=== PATIENT | male | born 1945 | race Caucasian/White ===

== ENCOUNTER 2017-08-31 19:28 | Emergency (ER) | payer OTHER ==
[2017-08-31 19:37] VITALS: BP 109/71; PULSE 89; RESP 16; TEMP 97.7; O2SAT 92
--- NOTE | 2017-08-31 20:11 | EDPHY ---
H & P Stated Complaint: gouged l index finger with chisel while woodworking Time Seen by Provider: 08/31/17 19:37 HPI/ROS: CHIEF COMPLAINT: Finger laceration HISTORY OF PRESENT ILLNESS: Patient is a 72-year-old man who comes to the emergency department complaining of a laceration to his left index finger. He was using a chisel by hand to shave would when he slipped and cut his left index finger at the DIP joint palmar aspect. He has normal range of motion and sensation. This happened about 3 hr prior to arrival. REVIEW OF SYSTEMS: Constitutional: denies: chills, fever, recent illness, recent injury EENTM: denies: blurred vision, double vision, nose congestion Respiratory: denies: cough, shortness of breath Cardiac: denies: chest pain, irregular heart rate, lightheadedness, palpitations Gastrointestinal/Abdominal: denies: abdominal pain, diarrhea, nausea, vomiting, blood streaked stools Genitourinary: denies: dysuria, frequency, hematuria, pain Musculoskeletal: denies: joint pain, muscle pain Skin: See HPI Neurological: denies: headache, numbness, paresthesia, tingling, dizziness, weakness Hematologic/Lymphatic: denies: blood clots, easy bleeding, easy bruising Immunologic/allergic: denies: HIV/AIDS, transplant EXAM: GENERAL: Well-appearing, well-nourished and in no acute distress. HEAD: Atraumatic, normocephalic. EYES: Pupils equal round and reactive to light, extraocular movements intact, sclera anicteric, conjunctiva are normal. ENT: TMs normal, nares patent, oropharynx clear without exudates. Moist mucous membranes. NECK: Normal range of motion, supple without lymphadenopathy or JVD. LUNGS: Breath sounds clear to auscultation bilaterally and equal. No wheezes rales or rhonchi. HEART: Regular rate and rhythm without murmurs, rubs or gallops. ABDOMEN: Soft, nontender, normoactive bowel sounds. No guarding, no rebound. No masses appreciated. BACK: No CVA tenderness, no spinal tenderness, step-offs or deformities EXTREMITIES: Normal range of motion, no pitting or edema. No clubbing or cyanosis. NEUROLOGICAL: Cranial nerves II through XII grossly intact. Normal speech, normal gait. 5/5 strength, normal movement in all extremities, normal sensation PSYCH: Normal mood, normal affect. SKIN: 1.5 cm laceration to palmar aspect of left index finger. Normal range of motion and sensation. Source: Patient Exam Limitations: No limitations - Personal History Current Tetanus Diphtheria and Acellular Pertussis (TDAP): Yes Tetanus Vaccine Date: 2-3 YRS AGO - Medical/Surgical History Hx Asthma: No Hx Chronic Respiratory Disease: No Hx Diabetes: No Hx Cardiac Disease: No Hx Renal Disease: No Hx Cirrhosis: No Hx Alcoholism: No Hx HIV/AIDS: No Hx Splenectomy or Spleen Trauma: No - Family History Significant Family History: No pertinent family hx - Social History Smoking Status: Former smoker Alcohol Use: Sober Drug Use: None Constitutional: Initial Vital Signs Temperature (C) 36.5 C 08/31/17 19:34 Heart Rate 89 08/31/17 19:34 Respiratory Rate 16 08/31/17 19:34 Blood Pressure 109/71 08/31/17 19:34 O2 Sat (%) 92 08/31/17 19:34 O2 Delivery Mode Room Air Allergies/Adverse Reactions: No Known Allergies Allergy (Verified 01/27/12 15:09) Home Medications: Medication Instructions Recorded Simvastatin [Zocor 20 mg (RX)] 20 mg PO DAILY18 01/15/12 Medical Decision Making - Diagnostics Imaging Results: Imaging Impressions Finger X-Ray 08/31/17 19:38 Impression: Soft tissue injury with no convincing fracture or radiopaque foreign body. Imaging: Discussed imaging studies w/ scallop cutter Radiologist Procedures: Procedure: Laceration repair. Verbal consent was obtained from the patient. The 1.5 senna left index finger laceration was anesthetized with 0.5% bupivacaine locally infiltrated. The wound was irrigated copiously according to protocol, draped and explored to its base. It was approximately 1/2 cm deep. There were no deep structures involved. No tendon, nerve, or vascular injury was identified when explored through full range of motion. No foreign body was identified. The wound was repaired with 5.0 Prolene, 3 sutures, interrupted. The wound repair was simple without wound margin revisement or multiple flap alignment. The procedure was performed by myself. A dressing was then placed with sterile gauze and bacitracin. ED Course/Re-evaluation: Patient tolerated suture repair well. No foreign body visible. X-rays reassuring. We discussed suture care and follow-up. Differential Diagnosis: Partial list of the Differential diagnosis considered include but were not limited to; laceration, tendon injury, vascular injury and although unlikely based on the history and physical exam, I also considered fracture, foreign body. I discussed these differential diagnoses and the plan with the patient as well as the usual and expected course. The patient understands that the diagnosis is provisional and that in medicine we are not always correct and that further workup is often warranted. Usual and customary warnings were given. All of the patient's questions were answered. The patient was instructed to return to the emergency department should the symptoms at all worsen or return, otherwise to followup with the physician as we discussed. Departure - Departure Disposition: Home, Routine, Self-Care Clinical Impression: Laceration Laceration of left index finger Qualifiers: Encounter type: initial encounter Damage to nail status: without damage Foreign body presence: without foreign body Qualified Code(s): S61.211A - Laceration without foreign body of left index finger without damage to nail, initial encounter Condition: Fair Instructions: Care For Your Stitches (ED), Laceration (ED) Additional Instructions: Have your stitches removed in 10 days Referrals: Jesenia Quijano MD [Primary Care Provider] - As per Instructions
== END 2017-08-31 20:20 | disposition home or self-care (01) ==
LOC: CED 19:28
PROC: 0HQGXZZ Repair Left Hand Skin, External Approach (ICD-10-PCS; principal; 2017-08-31)
DX: S61.211A Laceration without foreign body of left index finger without damage to nail, initial encounter (principal); Z87.891 Personal history of nicotine dependence; W45.8XXA Other foreign body or object entering through skin, initial encounter
CPT/HCPCS: 73140-PO

== ENCOUNTER 2018-09-27 10:56 | Emergency (ER) | payer OTHER, BC ==
[2018-09-27] MEDS ORDERED: ceFAZolin 1 GM in NS 100 ML IV ONE (11:48)
--- NOTE | 2018-09-27 12:08 | EDPHY ---
H & P Stated Complaint: left digits 2-4th lacerations at tip from table saw today 15 mins [employer] Time Seen by Provider: 09/27/18 10:58 HPI/ROS: 73-year-old male presents after injuring his left hand on his table saw he states he briefly looked away and suddenly felt dizzy thing to his fingers and noticed a large amount of blood. He is not on a blood thinner. Review of systems General no fever no chills no weakness HEENT no eye pain no eye discharge. No eye redness, no sore throat Respiratory no cough, no shortness of breath Cardiac no chest pain, no peripheral edema GI no abdominal pain, no diarrhea, no constipation, no nausea, no vomiting no flank pain, no hematuria, no dysuria Musculoskeletal no myalgias, no joint pain Heme no easy bruising, no easy bleeding Endo no polyuria, no polydipsia Skin no rashes, no pruritus Neuro no syncope, no dizziness, no headaches Psych is no suicidal ideation, no homicidal ideation Source: Patient, Family Exam Limitations: No limitations - Personal History Current Tetanus Diphtheria and Acellular Pertussis (TDAP): Yes Tetanus Vaccine Date: 2-3 YRS AGO - Medical/Surgical History Hx Asthma: No Hx Chronic Respiratory Disease: No Hx Diabetes: No Hx Cardiac Disease: No Hx Renal Disease: No Hx Cirrhosis: No Hx Alcoholism: No Hx HIV/AIDS: No Hx Splenectomy or Spleen Trauma: No Other PMH: high cholestrol, enlarged prostate, hernia repair, sinus surg x3 - Family History Significant Family History: No pertinent family hx - Social History Smoking Status: Former smoker Alcohol Use: Occasionally Drug Use: None - Physical Exam Exam: 73-year-old male Alert and oriented in no acute distress nontoxic appearance, afebrile Atraumatic normocephalic Neck no JVD Lungs clear to auscultation, no respiratory distress Heart regular rate and rhythm Extremities no cyanosis clubbing edema Except left hand Full range of motion at wrist, metacarpals, PIP and DIP All digits with good capillary refill Distal finger tip laceration to 4th digit, simple, 1 cm Ragged/stellate laceration to 3rd distal fingertip 1.5 cm, involving distal aspect of nail bed Laceration to distal finger tip of 2nd finger 1.5 cm with minimal involvement of distal aspect of nail bed Constitutional: Initial Vital Signs Temperature (C) 36.2 C 09/27/18 11:03 Heart Rate 71 09/27/18 11:03 Respiratory Rate 18 09/27/18 11:03 Blood Pressure 145/86 H 09/27/18 11:03 O2 Sat (%) 94 09/27/18 11:03 O2 Delivery Mode Room Air Allergies/Adverse Reactions: No Known Allergies Allergy (Verified 09/27/18 11:02) Home Medications: Medication Instructions Recorded Simvastatin [Zocor 20 mg (RX)] 20 mg PO DAILY18 01/15/12 Cephalexin 500 mg PO TID #21 tablet 09/27/18 Prostate Meds 09/27/18 Medical Decision Making - Diagnostics Imaging Results: Imaging Impressions Hand X-Ray 09/27/18 11:11 Impression: Tiny cortical chip fractures off the bony jaya of the 2nd and 3rd distal phalanges. Procedures: Procedure note-laceration Metacarpal block to the 2nd 3rd and 4th fingers with a combination of bupivacaine 0.5% without epinephrine and lidocaine 2% without epinephrine, 8 cc The wound was irrigated with copious amounts of saline. Eighteen simple interrupted sutures placed to approximate distal fingertips on digits 2,3,4 5-0 Ethilon used for repair Patient tolerated procedure well. ED Course/Re-evaluation: patient seen and evaluated for table saw injury to left hand X-ray with of minute cortical fractures to 2nd and 3rd distal fingertips Impression/plan Open fracture to distal fingertips 2nd and 3rd Patient given Ancef 1 g IV piggyback for open fracture for prophylactic antibiotic coverage Sutured repair Patient advised to return for suture removal in 10-12 days Patient advised to follow up with Hand surgery as needed Home with prescription for cephalexin Differential Diagnosis: Differential diagnosis considered but not limited to: Finger tip laceration, open fracture, closed fracture, open fracture with laceration - Data Points Medications Given: Discontinued Medications Cefazolin Sodium 1 gm/ Sodium (Chloride) 100 mls @ 400 mls/hr IV EDNOW ONE PRN Reason: Protocol Stop: 09/27/18 12:02 Last Admin: 09/27/18 12:09 Dose: 100 mls Departure - Departure Disposition: Home, Routine, Self-Care Clinical Impression: Open fracture of tuft of distal phalanx of finger, Finger laceration Condition: Good Instructions: Finger Fracture (ED), Finger Laceration (ED) Referrals: Jesenia Quijano MD [Primary Care Provider] - As per Instructions Nayely Polk MD [Medical Doctor] - As per Instructions Prescriptions: Cephalexin 500 mg PO TID #21 tablet
[2018-09-27 13:51] VITALS: BP 136/78
== END 2018-09-27 13:56 | disposition home or self-care (01) ==
LOC: CED 10:56
PROC: 0HQFXZZ Repair Right Hand Skin, External Approach (ICD-10-PCS; principal; 2018-09-27)
DX: S62.632B Displaced fracture of distal phalanx of right middle finger, initial encounter for open fracture (principal); S62.630B Displaced fracture of distal phalanx of right index finger, initial encounter for open fracture; S61.216A Laceration without foreign body of right little finger without damage to nail, initial encounter; W31.2XXA Contact with powered woodworking and forming machines, initial encounter
CPT/HCPCS: 12002; 73130; 96365; 99284; J0690

== ENCOUNTER → 2018-10-19 | Outpatient (CLI) | payer BC, OTHER ==
[~2018-10-19] MED LIST: GADOBUTROL 10 ML VIAL IVP ONE
== END ==
LOC: FIMAGING 06:26
PROVIDERS: ATTEND Specialist
DX: R97.20 Elevated prostate specific antigen [PSA] (principal); N40.0 Benign prostatic hyperplasia without lower urinary tract symptoms
CPT/HCPCS: 72197; 76377; A9585; 82565-PO